=== PATIENT | female | born 1995 | race American Indian/Alaskan Native ===

== ENCOUNTER 2022-07-13 13:51 | Emergency (ER) | payer SELFPAY ==
--- NOTE | 2022-07-13 15:04 | Emergency Department Report ---
ED Female HPI - General Chief complaint: Vaginal Bleeding Stated complaint: ABD PAIN/BLEEDING Time Seen by Provider: 07/13/22 14:58 Source: patient Mode of arrival: Ambulatory Limitations: No Limitations - History of Present Illness Initial comments: This is a 27-year-old -[place] female who presents to the emergency room with vaginal bleeding for 2 days. Patient states her abdomen has. Started on June 16 and is usually 30 days apart. Patient states she is concerned of possible miscarriage due to lower abdominal cramping. Patient is A1. Patient states she had a miscarriage in January 2022 and had similar symptoms a.m. Patient reports 2 negative home test but wanted confirmation. Patient states bleeding is heavy and experiencing intermittent abdominal cramps. MD Complaint: vaginal bleeding Onset/Timin -: days(s) - Related Data Previous Rx's Medication Instructions Recorded Last Taken Type Albuterol Mdi (or & Nicu Only) 2 puff IH QID PRN #8.5 gram 06/14/20 Unknown Rx [ProAir HFA Inhaler] Ibuprofen [Motrin 800 MG tab] 800 mg PO Q8HR #20 tablet 07/13/22 Unknown Rx Allergies Allergy/AdvReac Type Severity Reaction Status Date / Time No Known Allergies Allergy Verified 06/14/20 12:19 ED Review of Systems ROS: Stated complaint: ABD PAIN/BLEEDING Other details as noted in HPI Constitutional: denies: chills, fever Cardiovascular: denies: chest pain, palpitations Endocrine: no symptoms reported Gastrointestinal: abdominal pain Genitourinary: abnormal menses Neurological: denies: headache, weakness, paresthesias Psychiatric: as per HPI ED Past Medical Hx - Past Medical History Previous Medical History?: No - Surgical History Past Surgical History?: No - Social History Smoking Status: Light Tobacco Smoker Substance Use Type: Alcohol - Medications Home Medications: Home Medications Medication Instructions Recorded Confirmed Last Taken Type Albuterol Mdi (or & Nicu Only) 2 puff IH QID PRN #8.5 gram 06/14/20 Unknown Rx [ProAir HFA Inhaler] Ibuprofen [Motrin 800 MG tab] 800 mg PO Q8HR #20 tablet 07/13/22 Unknown Rx ED Physical Exam - General Limitations: No Limitations General appearance: alert, in no apparent distress - Respiratory Respiratory exam: Present: normal lung sounds bilaterally. Absent: respiratory distress - Cardiovascular Cardiovascular Exam: Present: regular rate, normal rhythm. Absent: systolic murmur, diastolic murmur, rubs, gallop - GI/Abdominal GI/Abdominal exam: Present: soft, normal bowel sounds. Absent: distended, tenderness, guarding, rebound, rigid, mass - Neurological Exam Neurological exam: Present: alert, oriented X3, normal gait - Psychiatric Psychiatric exam: Present: normal affect, normal mood - Skin Skin exam: Present: warm, dry, intact, normal color. Absent: rash ED Course Vital Signs 07/13/22 07/13/22 14:42 16:55 Temperature 98.4 F Pulse Rate 85 76 Respiratory 18 16 Rate Blood Pressure 117/77 118/74 [Left] O2 Sat by Pulse 99 100 Oximetry ED Medical Decision Making - Lab Data Lab Results 07/13/22 Range/Units 15:17 Urine Color Red (Yellow) Urine Turbidity Turbid (Clear) Specific Orange (Man) 1.030 (1.003-1.030) Ur Protein (Man) 2+ (Negative) mg/dL Ur Ketones (Man) Negative (Negative) Urine Bilirubin (Man) Small (Negative) Urine WBC (Auto) 19.0 H (0.0-6.0) /HPF Urine RBC (Auto) > 182.0 (0.0-6.0) /HPF U Epithel Cells (Auto) 54.0 H (0-13.0) /HPF Urine RBC (Manual) 2+ (Negative) Urine WBC Clumps 2+ /HPF Urine Mucus Few /HPF Urine HCG, Qual Negative (Negative) - Medical Decision Making This is a 27-year-old female that presents with uterine bleeding and lower abdominal cramping for 2 days. Vitals are stable and patient in no acute distress. Mild tenderness on exam. Last menstrual period June 11, 2022, A1. Denies vaginal discharge or UTI symptoms. Work-up: Urinalysis, urine test. Urinalysis moderate amount of leukocytes and blood, urine hCG negative. Patient currently on menses. Due to physical exam and history this is susceptible of normal ministration. Referral to [facility] for continued care. Patient discharged home stable with strict return instructions. Critical care attestation.: If time is entered above; I have spent that time in minutes in the direct care of this critically ill patient, excluding procedure time. ED Disposition Clinical Impression: Vaginal bleeding, Menstrual cramps Disposition: 01 HOME / SELF CARE / HOMELESS Is pt being admited?: No Condition: Stable Instructions: Dysmenorrhea, [id number] Prescriptions: Ibuprofen [Motrin 800 MG tab] 800 mg PO Q8HR #20 tablet Referrals: DUNIA CASSIDY MD [Staff Physician] - 3-5 Days TARA ADORNO MD [Staff Physician] - 3-5 Days Forms: Work/School Release Form(ED) Time of Disposition: 16:42
[2022-07-13 16:27] LABS: Color,Urine Red (Yellow); HCG Qualitative,Urine Negative (Negative)
[2022-07-13 16:34] LABS: Mucus,Urine FEW /HPF
[2022-07-13 16:42] LABS: RBC,Urine > 182.0 /HPF (0.0-6.0)
[2022-07-13 16:57] VITALS: BP 118/74
== END 2022-07-13 17:00 | disposition home or self-care (01) ==
LOC: ED 13:51
DX: N93.9 Abnormal uterine and vaginal bleeding, unspecified (principal); R25.2 Cramp and spasm
CPT/HCPCS: 81001; 81025; 87086; 99283